=== PATIENT | female | born 1990 | race Caucasian/White ===

== ENCOUNTER → 2025-05-04 10:19 | Outpatient (REF) | payer BC, SELFPAY | LOC: PNTC 10:19 | PROVIDERS: ATTENDING PHYSICIAN Obstetrics & Gynecology | DX: O99.213 Obesity complicating pregnancy, third trimester (principal); O43.123 Velamentous insertion of umbilical cord, third trimester; O28.3 Abnormal ultrasonic finding on antenatal screening of mother | CPT/HCPCS: 76816 ==

== ENCOUNTER → 2025-05-17 09:49 | Outpatient (REF) | payer BC, SELFPAY | LOC: PNTC 09:49 | PROVIDERS: ATTENDING PHYSICIAN Obstetrics & Gynecology | DX: O99.213 Obesity complicating pregnancy, third trimester (principal); O43.123 Velamentous insertion of umbilical cord, third trimester; O28.3 Abnormal ultrasonic finding on antenatal screening of mother | CPT/HCPCS: 59025; 76815 ==

== ENCOUNTER → 2025-05-24 09:54 | Outpatient (REF) | payer BC, SELFPAY | LOC: PNTC 09:54 | PROVIDERS: ATTENDING PHYSICIAN Obstetrics & Gynecology | DX: O99.213 Obesity complicating pregnancy, third trimester (principal); O43.123 Velamentous insertion of umbilical cord, third trimester; O28.3 Abnormal ultrasonic finding on antenatal screening of mother | CPT/HCPCS: 76815 ==

== ENCOUNTER → 2025-05-31 08:57 | Outpatient (REF) | payer BC, SELFPAY | LOC: PNTC 08:57 | PROVIDERS: ATTENDING PHYSICIAN Obstetrics & Gynecology | DX: O99.213 Obesity complicating pregnancy, third trimester (principal); O43.123 Velamentous insertion of umbilical cord, third trimester; O28.3 Abnormal ultrasonic finding on antenatal screening of mother | CPT/HCPCS: 59025; 76816 ==

== ENCOUNTER → 2025-06-07 10:03 | Outpatient (REF) | payer BC, SELFPAY | LOC: PNTC 10:03 | PROVIDERS: ATTENDING PHYSICIAN Obstetrics & Gynecology | DX: O99.213 Obesity complicating pregnancy, third trimester (principal); O43.123 Velamentous insertion of umbilical cord, third trimester; O28.3 Abnormal ultrasonic finding on antenatal screening of mother | CPT/HCPCS: 59025; 76818 ==